=== PATIENT | female | born 1965 | race Caucasian/White ===

== ENCOUNTER 2018-07-10 15:07 | Emergency (ER) | payer OTHER ==
[~2018-07-10] VITALS: Ht 162.6 cm; Wt 81.6 kg
[~2018-07-10 15:07] MED LIST: LORA10TA19 PO; [UNRECOGNIZED DRUG - CODE] PO
[2018-07-10 15:13] VITALS: BP 128/48
[2018-07-10 18:41] VITALS: BP 120/50
== END 2018-07-10 18:41 | disposition home or self-care (01) ==
LOC: MED 15:07
DX: N20.0 Calculus of kidney (principal); Z90.49 Acquired absence of other specified parts of digestive tract; Z79.899 Other long term (current) drug therapy
CPT/HCPCS: 74022; 81002; 81025; 99284

== ENCOUNTER 2019-01-28 19:48 | Emergency (ER) | payer OTHER ==
[~2019-01-28] VITALS: Ht 165.1 cm; Wt 72.6 kg
[2019-01-28 20:01] VITALS: BP 136/77
--- NOTE | 2019-01-28 20:05 | NUR ---
PT TO ED WITH C/O DIZZINESS WITH SUDDEN ONSET X 1840 TODAY WHILE DRIVING. PT DENIES N/V. DENIES INJURY OR TRAUMA. PER PT "I WAS DRIVING THEN I FELT WEIRD SO I PULLED OVER FOR A BIT THEN CAME HERE" PT PLACED INTO BED, PENDING MD VALENZUELA.
--- NOTE | 2019-01-28 20:21 | NUR ---
CODE BRAIN CALLED AT THIS TIME. RADIOLOGY MADE AWARE
[2019-01-28] MEDS ORDERED: NACL 0.9% 1,000 ML IV ONE (20:25)
--- NOTE | 2019-01-28 20:25 | NUR ---
RN ACCOMPANIED PT TO CT FOR CODE BRAIN. PT PLACED ON MONITOR.
--- NOTE | 2019-01-28 20:37 | NUR ---
PT RETURN FROM CT
--- NOTE | 2019-01-28 20:38 | NUR ---
CXR COMPLETED IN RAD.
--- NOTE | 2019-01-28 20:39 | NUR ---
EMT PERFORMING EKG AT BEDSIDE.
[2019-01-28 21:18] LABS: BASOPHILS # (AUTO) 0.1 K/uL (0.00-0.22); BASOPHILS % (AUTO) 0.7 % (0.0-2.0); EOSINOPHILS # (AUTO) 0.2 K/uL (0-0.4); EOSINOPHILS % (AUTO) 1.3 % (0.0-4.0); HEMATOCRIT 41.6 % (36-48); LYMPHOCYTES # (AUTO) 3.2 K/uL (2.5-16.5); LYMPHOCYTES % (AUTO) 27.5 % (20.5-51.1); MEAN CORPUSCULAR HEMOGLOBIN 29 pg (27-31); MEAN CORPUSCULAR HGB CONC 34 g/dL (33-37); MEAN CORPUSCULAR VOLUME 87.2 fL (80-94); MONOCYTES # (AUTO) 0.8 K/uL (0.8-1.0); NEUTROPHILS # (AUTO) 7.5 K/uL (1.8-7.7); NEUTROPHILS % (AUTO) 63.5 % (42.2-75.2); PLATELET COUNT (AUTO) 329 K/uL (140-450); RED BLOOD CELL COUNT(AUTO) 4.77 MIL/uL (4.20-5.40); RED CELL DISTRIBUTION WIDTH 13.8 % (11.6-13.7); WHITE BLOOD COUNT (AUTO) 11.8 K/uL (4.8-10.8)
--- NOTE | 2019-01-28 21:27 | NUR ---
PT AWAKE, ALERT, CALM, COMFORTABLE. DENIES PAIN, DISTRESS. STATES SHE FEELS A LITTLE BETTER BUT IS STILL MILDLY SHAKEY. SKIN PINK, WARM, DRY. BREATHING EVEN, UNLABORED.
[2019-01-28 21:32] LABS: ANION GAP 13.4 (8-16); CARBON DIOXIDE 25.3 mmol/L (21-32); CREATININE 0.8 mg/dL (0.6-1.3); POTASSIUM 3.7 mmol/L (3.5-5.1)
[2019-01-28 21:37] LABS: ALBUMIN 3.9 g/dL (3.4-5.0); TOTAL BILIRUBIN 0.4 mg/dL (0.0-1.0)
[2019-01-28 21:43] LABS: CREATINE KINASE MB 1.3 ng/mL (0-3.6)
--- NOTE | 2019-01-28 22:05 | NUR ---
Dr. Alba examining patient.
--- NOTE | 2019-01-28 23:10 | NUR ---
PT STATES SHE FEELS BETTER AND WOULD LIKE TO GO HOME. DENIES PAIN/ DISCOMFORT/ SHAKINESS. DR. DUEÑAS NOTIFIED.
[2019-01-28 23:15] VITALS: BP 115/64
--- NOTE | 2019-01-28 23:15 | NUR ---
Patient discharged with v/s stable. Written and verbal after care instructions given and explained. Patient verbalized understanding. Ambulatory with steady gait. All questions addressed prior to discharge. Advised to follow up with PMD.
== END 2019-01-28 23:15 | disposition home or self-care (01) ==
LOC: MED 19:48
DX: E86.0 Dehydration (principal); R55 Syncope and collapse; Z79.899 Other long term (current) drug therapy
CPT/HCPCS: 36415; 70450; 71045; 80053; 82550; 82553; 84484; 85025; 93005; 96360; 99284; J7030; Q0092

== ENCOUNTER 2019-02-04 12:28 | Emergency (ER) | payer OTHER ==
[~2019-02-04] VITALS: Ht 160 cm; Wt 73.9 kg
[2019-02-04 12:34] VITALS: BP 122/69
--- NOTE | 2019-02-04 13:30 | NUR ---
called pt, not present in lobby/outside at this time
--- NOTE | 2019-02-04 13:38 | NUR ---
called pt, not present in lobby/outside at this time
--- NOTE | 2019-02-04 13:44 | NUR ---
called pt, not present in lobby/outside at this time. pt LWBS
--- NOTE | 2019-02-04 13:45 | NUR ---
PATIENT LEFT WITHOUT BEING SEEN BY DR. Evans. NO FURTHER CARE PROVIDED FOR PATIENT.
[2019-02-04] MEDS ORDERED: ATI.5 PO (20:11)
[2019-02-04] MEDS ORDERED: ESCI10TA PO (20:11)
== END 2019-02-04 13:42 | disposition left against medical advice (07) ==
LOC: MED 12:28
DX: R20.0 Anesthesia of skin (principal); Z79.899 Other long term (current) drug therapy; Z53.21 Procedure and treatment not carried out due to patient leaving prior to being seen by health care provider

== ENCOUNTER 2019-02-04 16:56 | Inpatient (IN) | payer OTHER ==
[~2019-02-04] VITALS: Ht 160 cm; Wt 72.6 kg
[2019-02-04 17:01] VITALS: BP 139/81
--- NOTE | 2019-02-04 17:41 | NUR ---
PT PRESENTS TO ED WITH C/O NUMBNESS TO L ARM FOR APPROX 1 WEEK AGO. PT ALERT TO NAME, PLACE, TIME AND EVENT. NO FACIAL ASSYMETRY/DROOP NOTED. EQUAL BLE/BUE STRENGTH. PT CHECKED INTO [facility] EARLIER TODAY BUT LWBS, PER PT: SHE WAS SEEN AT URGENT CARE AND ADVISED TO RETURN TO THE ER. HX: DEPRESSION, ANXIETY RX: DENIES
--- NOTE | 2019-02-04 19:05 | NUR ---
REPORT RECIEVED FROM ANIKA SIGALA.
[2019-02-04] MEDS ORDERED: NACL 0.9% 1,000 ML IV ONE (19:20)
[2019-02-04 19:42] LABS: APPEARANCE,URINE CLEAR (CLEAR); BASOPHILS % (AUTO) 0.3 % (0.0-2.0); BILIRUBIN,URINE NEGATIVE (NEGATIVE); COLOR,URINE YELLOW (YELLOW); EOSINOPHILS # (AUTO) 0.2 K/uL (0-0.4); EOSINOPHILS % (AUTO) 1.7 % (0.0-4.0); HEMOGLOBIN 13.5 g/dL (12.0-16.0); LEUKOCYTE ESTERASE ,URINE NEGATIVE (NEGATIVE); LYMPHOCYTES # (AUTO) 2.9 K/uL (2.5-16.5); LYMPHOCYTES % (AUTO) 21.9 % (20.5-51.1); MEAN CORPUSCULAR HEMOGLOBIN 29 pg (27-31); MEAN CORPUSCULAR HGB CONC 33 g/dL (33-37); MEAN CORPUSCULAR VOLUME 87.6 fL (80-94); MONOCYTES # (AUTO) 1.2 K/uL (0.8-1.0); MONOCYTES % (AUTO) 8.6 % (1.7-9.3); NEUTROPHILS % (AUTO) 67.5 % (42.2-75.2); NITRITE, URINE NEGATIVE (NEGATIVE); PH,URINE 6.5 (5.0-9.0); PLATELET COUNT (AUTO) 320 K/uL (140-450); RED BLOOD CELL COUNT(AUTO) 4.68 MIL/uL (4.20-5.40); RED CELL DISTRIBUTION WIDTH 13.9 % (11.6-13.7); UGLUCOSE NEGATIVE (NEGATIVE); WHITE BLOOD COUNT (AUTO) 13.4 K/uL (4.8-10.8)
[2019-02-04 19:58] LABS: ALBUMIN 3.5 g/dL (3.4-5.0); ANION GAP 11.6 (8-16); CARBON DIOXIDE 26.4 mmol/L (21-32); CREATININE 0.8 mg/dL (0.6-1.3); TOTAL BILIRUBIN 0.4 mg/dL (0.0-1.0)
--- NOTE | 2019-02-04 20:00 | NUR ---
PT IN BED RESTING WITH EYES OPEN. AT BEDSIDE. STATES 0/10 PAIN. VSS. CONTINUE TO MONITOR.
[2019-02-04] MEDS ORDERED: ASPIRIN 325 MG TAB PO ONE (20:10)
[2019-02-04] MEDS ORDERED: ATI.5 PO (20:11)
[2019-02-04] MEDS ORDERED: ESCI10TA PO (20:11)
[2019-02-04 20:19] LABS: CREATINE KINASE MB 0.7 ng/mL (0-3.6)
[2019-02-04 20:42] LABS: BLOOD, URINE NEGATIVE (NEGATIVE)
[2019-02-04] MEDS ORDERED: ACETAMINOPHEN 325 MG TAB PO PRN (20:50)
[2019-02-04] MEDS ORDERED: DOCUSATE SODIUM 100 MG GELCAP PO PRN (20:50)
[2019-02-04] MEDS ORDERED: ONDANSETRON 4 MG/2 ML VIAL IM/IVP PRN (20:50)
--- NOTE | 2019-02-04 21:18 | NUR ---
REPORT GIVEN AND CARE TRANSFERED TO FRANCIE SIGALA ROOM 105A. TRANSFERED VIA RNEY WITH VSS.
[2019-02-04] MEDS ORDERED: LORazepam 0.5 MG TAB PO PRN (21:20)
[2019-02-04] MEDS ORDERED: LORATADINE 10 MG TAB PO PRN (21:20)
[2019-02-04 21:22] LABS: BARBITURATE, URINE NEG. ng/ml (NEG <=200); BENZODIAZEPINE, URINE NEG. ng/mL (NEG <=200); CANNABINOID, URINE NEG. ng/mL (NEG <=50); COCAINE, URINE NEG. ng/mL (NEG <=300); OPIATE, URINE NEG. ng/mL (NEG <=2000); PHENCYCLIDINE SCREEN,URINE NEG. ng/mL (NEG <=25)
[2019-02-04 21:24] LABS: FREE T4 (FREE THYROXINE) 1.09 ng/dL (0.76-1.46); MAGNESIUM 2.1 mg/dL (1.8-2.4); PHOSPHORUS 3.8 mg/dL (2.5-4.9); THYROID STIMULATING HORMONE 1.26 uIU/mL (0.34-3.74)
[2019-02-04 21:25] LABS: PROTHROMBIN TIME 9.4 secs (10.8-13.4)
[2019-02-04 21:40] VITALS: BP 124/52
--- NOTE | 2019-02-04 21:40 | NUR ---
RECEIVED PT FROM ER NURSE. PT CAME IN [facility] AND AMBULATED TO [facility] BED. AAOX4. NO SOB OR ANY RESP DISTRESS NOTED ON ROOM AIR. SKIN INTACT, WARM AND DRY TO TOUCH. IV SITE ON RH 22G, PATENT, INTACT, AND ASYMPTOMATIC. DX CHEST PAIN, NEAR SYNCOPE. STANDARD PRECAUTION IN PLACE. ORIENT ROOM TO PT, UPDATED BOARD. CALL LIGHT WITHIN REACH. BED IN LOW POSITION.
--- NOTE | 2019-02-04 22:05 | NUR ---
PT SENT TO RAD TO HAVE HEAD CT.
[2019-02-04] MEDS: NACL 0.9% 1,000 ML IV SCH (22:28)
--- NOTE | 2019-02-04 22:45 | NUR ---
PT CAME BACK FROM HEAD CT. NO DISTRESS NOTED.
[2019-02-05] VITALS: BP 110/51
--- NOTE | 2019-02-05 00:40 | NUR ---
PT SLEEPING IN BED. BREATHING EVEN AND UNLABORED. BED IN LOW POSITION. CALL LIGHT WITHIN REACH.
--- NOTE | 2019-02-05 02:05 | NUR ---
PT SLEEPING IN BED COMFORTABLY. NO SOB OR ANY RESP. DISTRESS NOTED. BED IN LOW POSITION, CALL LIGHT WITHIN REACH.
[2019-02-05 04:00] VITALS: BP 97/47
--- NOTE | 2019-02-05 04:13 | NUR ---
PT SLEEPING IN BED. BREATHING EVEN AND UNLABORED. BED IN LOW POSITION. CALL LIGHT WITHIN REACH. WILL CONTINUE TO MONITOR.
--- NOTE | 2019-02-05 06:05 | NUR ---
PT SLEEPING IN BED. NO ACUTE DISTRESS NOTED.
[2019-02-05 07:01] LABS: ANION GAP 12.3 (8-16); CARBON DIOXIDE 25.4 mmol/L (21-32); CREATININE 0.6 mg/dL (0.6-1.3); POTASSIUM 3.7 mmol/L (3.5-5.1)
[2019-02-05 07:17] LABS: CHOL/HDL RATIO 3.7 (1-4.5)
--- NOTE | 2019-02-05 07:17 | NUR ---
ENDORSED PT TO DAY SHIFT NURSE. PT IN STABLE CONDITION.
--- NOTE | 2019-02-05 07:18 | NUR ---
RECEIVED REPORT FROM THE ENTERTAINMENT MUSICIAN NURSE AT BEDSIDE. PT IS SLEEPING. PT HAS IV ON R HAND 22G NS AT 100ML INFUSING. WILL COME BACK AND ASSESS PT. UPDATED THE BOARD.
--- NOTE | 2019-02-05 07:40 | NUR ---
PT IS WAKE AND ORIENTED. V/S WITHIN NORMAL RANGE. DENIES ANY PAIN. SOME OCCASIONAL HEAVINESS ON CHEST. SOME ANXIETY. XRY WAS HERE FOR CXRY. SO FAR, 2 TROPONIN NEGATIVE. FIRST CXRY NEGATIVE. HEAD CT NEGATIVE. WILL PT AMBULATED TO THE BATHROOM W/ STEADY GAIT. DISCUSSED TAKING ANTI DEPRESSANTS ON REGULAR BASIS. PLAN FOR TODAY: PSYCH EVAL, P/T EVAL, AND US CAROTID. WILL CONTINUE TO MONITOR PT.
[2019-02-05 08:00] VITALS: BP 117/46
[2019-02-05 08:15] LABS: BASOPHILS # (AUTO) 0.1 K/uL (0.00-0.22); BASOPHILS % (AUTO) 0.6 % (0.0-2.0); EOSINOPHILS # (AUTO) 0.2 K/uL (0-0.4); EOSINOPHILS % (AUTO) 1.8 % (0.0-4.0); HEMATOCRIT 38.5 % (36-48); HEMOGLOBIN 12.9 g/dL (12.0-16.0); LYMPHOCYTES # (AUTO) 2.3 K/uL (2.5-16.5); LYMPHOCYTES % (AUTO) 23.8 % (20.5-51.1); MEAN CORPUSCULAR HEMOGLOBIN 29 pg (27-31); MEAN CORPUSCULAR HGB CONC 33 g/dL (33-37); MEAN CORPUSCULAR VOLUME 88.1 fL (80-94); MONOCYTES # (AUTO) 0.8 K/uL (0.8-1.0); MONOCYTES % (AUTO) 8.1 % (1.7-9.3); NEUTROPHILS # (AUTO) 6.4 K/uL (1.8-7.7); NEUTROPHILS % (AUTO) 65.7 % (42.2-75.2); PLATELET COUNT (AUTO) 286 K/uL (140-450); RED BLOOD CELL COUNT(AUTO) 4.37 MIL/uL (4.20-5.40); RED CELL DISTRIBUTION WIDTH 13.3 % (11.6-13.7); WHITE BLOOD COUNT (AUTO) 9.8 K/uL (4.8-10.8)
--- NOTE | 2019-02-05 08:50 | NUR ---
US IS HERE FOR CAROTID US.
[2019-02-05] MEDS: NACL 0.9% 1,000 ML IV SCH ×2 (08:52→17:52)
[2019-02-05] MEDS: ESCITALOPRAM 20 MG TAB PO SCH (08:53)
--- NOTE | 2019-02-05 08:56 | NUR ---
ADMINISTERED MORNING MED AND HUNG A NEW IVF BAG. PT TOLERATED WELL.
--- NOTE | 2019-02-05 09:18 | NUR ---
PATIENT HAS BEEN SCREENED AND CATEGORIZED MODERATE NUTRITION RISK. PATIENT WILL BE SEEN WITHIN 3-5 DAYS OF ADMISSION. 02/07/19JACOB[address] OLIV[address]
[2019-02-05 12:00] VITALS: BP 111/49
[2019-02-05 16:00] VITALS: BP 120/63
--- NOTE | 2019-02-05 19:05 | NUR ---
RECEIVED PT FROM DAY SHIFT NURSEMARCELLO. FAMILY AT BEDSIDE. PT AAOX4. NO SOB OR ANY RESP DISTRESS NOTED ON ROOM AIR. SKIN INTACT, WARM AND DRY TO TOUCH. IV SITE ON RH 22G, PATENT, INTACT, AND ASYMPTOMATIC. STANDARD PRECAUTION IN PLACE. UPDATED BOARD. CALL LIGHT WITHIN REACH. BED IN LOW POSITION.
[2019-02-05 20:00] VITALS: BP 120/54
--- NOTE | 2019-02-05 20:00 | NUR ---
VS CHECKED. WITHIN NORMAL RANGE. WILL CONTINUE TO MONITOR.
--- NOTE | 2019-02-05 22:36 | NUR ---
PT SLEEPING IN BED. RESPIRATION EVEN AND UNLABORED. CALL LIGHT WITHIN REACH.
[2019-02-06] VITALS: BP 122/56
--- NOTE | 2019-02-06 00:45 | NUR ---
PT SLEEPING IN BED. NO ACUTE DISTRESS NOTED. BREATHING EVEN AND UNLABORED.
--- NOTE | 2019-02-06 02:44 | NUR ---
PT SLEEPING IN BED COMFORTABLY. NO ACUTE DISTRESS NOTED. BED IN LOW POSITION, CALL LIGHT WITHIN REACH.
[2019-02-06] MEDS: NACL 0.9% 1,000 ML IV SCH (03:38)
[2019-02-06 04:07] VITALS: BP 100/44
--- NOTE | 2019-02-06 04:15 | NUR ---
VS CHECKED. WITHIN PT'S BASELINE. NO ACUTE DISTRESS NOTED. CALL LIGHT WITHIN REACH.
--- NOTE | 2019-02-06 05:41 | NUR ---
PT STILL SLEEPING. BREATHING EVEN AND UNLABORED. NO ACUTE DISTRESS NOTED.
--- NOTE | 2019-02-06 07:04 | NUR ---
ENDORSED PT TO DAY SHIFT NURSE. PT IN STABLE CONDITION.
[2019-02-06 07:20] LABS: ANION GAP 10.6 (8-16); CARBON DIOXIDE 25.2 mmol/L (21-32); CREATININE 0.7 mg/dL (0.6-1.3); POTASSIUM 3.8 mmol/L (3.5-5.1)
--- NOTE | 2019-02-06 07:25 | NUR ---
RECEIVED HANDOFF REPORT FROM BINDERY MACHINE TENDER NURSE PT IS AWAKE IN BED PT IS STABLE AND IN NO APPARENT DISTRESS. ALL SAFETY MEASURES ARE IN PLACE. WILL CONTINUE TO MONITOR.
[2019-02-06 07:32] LABS: PHOSPHORUS 3.7 mg/dL (2.5-4.9)
[2019-02-06 07:54] LABS: BASOPHILS # (AUTO) 0.1 K/uL (0.00-0.22); BASOPHILS % (AUTO) 0.7 % (0.0-2.0); EOSINOPHILS # (AUTO) 0.2 K/uL (0-0.4); EOSINOPHILS % (AUTO) 2.1 % (0.0-4.0); LYMPHOCYTES # (AUTO) 2.5 K/uL (2.5-16.5); LYMPHOCYTES % (AUTO) 26.8 % (20.5-51.1); MEAN CORPUSCULAR HEMOGLOBIN 29 pg (27-31); MEAN CORPUSCULAR HGB CONC 33 g/dL (33-37); MEAN CORPUSCULAR VOLUME 87.3 fL (80-94); MONOCYTES # (AUTO) 0.9 K/uL (0.8-1.0); MONOCYTES % (AUTO) 9.2 % (1.7-9.3); NEUTROPHILS # (AUTO) 5.7 K/uL (1.8-7.7); NEUTROPHILS % (AUTO) 61.2 % (42.2-75.2); PLATELET COUNT (AUTO) 300 K/uL (140-450); RED BLOOD CELL COUNT(AUTO) 4.46 MIL/uL (4.20-5.40); RED CELL DISTRIBUTION WIDTH 13.6 % (11.6-13.7); WHITE BLOOD COUNT (AUTO) 9.4 K/uL (4.8-10.8)
[2019-02-06] MEDS: ESCITALOPRAM 20 MG TAB PO SCH (08:17)
[2019-02-06 08:29] VITALS: BP 104/58
--- NOTE | 2019-02-06 09:13 | NUR ---
FREQUENT ROUNDING PT IS AWAKE AND STABLE PT IS IN NO APPARENT DISTRESS, PT DENIES PAIN. WILL CONTINUE TO MONITOR, IVF INFUSING AT 100MLS/HR IV IS PATENT AND SHOWS NO SIGNS OF INFILTRATION OR INFLAMMATION
--- NOTE | 2019-02-06 10:35 | NUR ---
INFORMED PT ABOUT CHANGE IN PLAN OF CARE. WILL PREPARE FOR PT TO BE DISCHARGED HOME. PT IS AWARE OF THE PLAN.
[2019-02-06 10:54] VITALS: BP 104/58
--- NOTE | 2019-02-06 11:18 | NUR ---
FREQUENT ROUNDING ON PATIENT PT IS STABLE AND IN NO APPARENT DISTRESS. ALL SAFETY MEASURES ARE IN PLACE. WILL CONTINUE TO MONITOR.
[2019-02-06 12:00] VITALS: BP 108/54
--- NOTE | 2019-02-06 12:30 | NUR ---
PT IS DRESS. AND READY FOR DISCHARGE. REVIEWED PATIENT DISCHARGE INSTRUCTIONS. INFORMED PT OF HER APPOINTMENT WITH HER PCP ON February AT 10AM. PT IS AWARE OF APPOINTMENT AND OK WITH FOLLOWING UP WITH PCP. ANSWERED ALL THE PTS QUESTIONS PT IS STABLE AND IN NO APPARENT DISTRESS, PT SIGNED ALL DISCHARGE PAPERWORK. PT REQUESTED A SICK NOTE FOR WORK, WILL ASK TO WRITE ONE.
--- NOTE | 2019-02-06 12:58 | NUR ---
PT FAMILY IS AT BEDSIDE. PT IS READY FOR DISCHARGE. REMOVED IV. IV TIP INTACT. REMOVED ID BAND. AND TELE BOX. PT AMBULATED OFF THE UNIT WITH HER DAUGHTER. PT LEFT WITH ALL PERSONAL BELONGINGS. PT IS STABLE AND IN NO APPARENT DISTRESS.
== END 2019-02-06 13:00 | disposition home or self-care (01) | DRG 74 ==
LOC: MED 16:56 → MTU 20:45
PROVIDERS: ADMIT General Practice; ATTEND General Practice
DX: G90.8 Other disorders of autonomic nervous system (principal); F41.1 Generalized anxiety disorder; D72.829 Elevated white blood cell count, unspecified; F32.9 Major depressive disorder, single episode, unspecified; J30.2 Other seasonal allergic rhinitis; E87.8 Other disorders of electrolyte and fluid balance, not elsewhere classified; F43.9 Reaction to severe stress, unspecified; Z90.49 Acquired absence of other specified parts of digestive tract
CPT/HCPCS: 36415; 70450; 71045; 80048; 80053; 80305; 81003; 82150; 82550; 82553; 83036; 83605; 83690; 83735; 83880; 84100; 84134; 84439; 84443; 84484; 85025; 85610; 85730; 87081; 93005; 93880; 97161-GP; 99285; G0378; J7030; Q0092

== ENCOUNTER 2019-05-18 10:25 | Inpatient (IN) | payer OTHER ==
[~2019-05-18] VITALS: Ht 160 cm; Wt 73.9 kg
[~2019-05-18 10:25] MED LIST changes: +ATI.5 PO; +ESCI10TA PO; -[UNRECOGNIZED DRUG - CODE] PO
[2019-05-18 10:39] VITALS: BP 119/71
[2019-05-18] MEDS ORDERED: IBUPROFEN 600 MG TAB PO ONE (10:50)
[2019-05-18] MEDS ORDERED: ACETAMINOPHEN EXTRA STRENGTH 500 MG TAB PO ONE (10:50)
--- NOTE | 2019-05-18 10:53 | NUR ---
PATIENT AMBULATED TO BED 2.
--- NOTE | 2019-05-18 10:58 | NUR ---
LAB AT BEDSIDE
--- NOTE | 2019-05-18 11:01 | NUR ---
URINE COLLECTED, COLORED ORANGE/RED
[2019-05-18] MEDS ORDERED: NACL 0.9% 1,000 ML IV ONE ×2 (11:15→12:15)
--- NOTE | 2019-05-18 11:24 | NUR ---
XRAY AT BEDSIDE
--- NOTE | 2019-05-18 11:37 | NUR ---
C/O GENERALIZED ITCHING, DARK URINE & BLOATING X 1 WEEK. PT REPORTS TAKING BENADRYL AT HOME WITH SOME RELIEF. DENIES DYSURIA/ABD PAIN, N/V. PT IS TACHYCARDIC AT 117 BPM & FEBRILE AT 102.5 PO UPON TRIAGE. RESPIRATIONS 31. AA0X4. BED IS DOWN, LOCKED, BED RAIL X 1, ON MONITOR. ERMD TO SEE PT. HX: DEPRESSION/ANXIETY RX: LEXAPRO, ATIVAN
[2019-05-18 11:47] LABS: BASOPHILS # (AUTO) 0.1 K/uL (0.00-0.22); BASOPHILS % (AUTO) 0.4 % (0.0-2.0); EOSINOPHILS % (AUTO) 0.1 % (0.0-4.0); HEMATOCRIT 45.8 % (36-48); HEMOGLOBIN 14.9 g/dL (12.0-16.0); LYMPHOCYTES # (AUTO) 0.9 K/uL (2.5-16.5); LYMPHOCYTES % (AUTO) 5.9 % (20.5-51.1); MEAN CORPUSCULAR HEMOGLOBIN 29 pg (27-31); MEAN CORPUSCULAR HGB CONC 33 g/dL (33-37); MEAN CORPUSCULAR VOLUME 88.5 fL (80-94); MONOCYTES % (AUTO) 6.4 % (1.7-9.3); NEUTROPHILS % (AUTO) 87.2 % (42.2-75.2); PLATELET COUNT (AUTO) 307 K/uL (140-450); RED BLOOD CELL COUNT(AUTO) 5.18 MIL/uL (4.20-5.40); RED CELL DISTRIBUTION WIDTH 13.4 % (11.6-13.7)
[2019-05-18 11:59] LABS: BARBITURATE, URINE NEG. ng/ml (NEG <=200); BENZODIAZEPINE, URINE NEG. ng/mL (NEG <=200); CANNABINOID, URINE NEG. ng/mL (NEG <=50); COCAINE, URINE NEG. ng/mL (NEG <=300); OPIATE, URINE NEG. ng/mL (NEG <=2000); PHENCYCLIDINE SCREEN,URINE NEG. ng/mL (NEG <=25)
[2019-05-18 12:00] LABS: APPEARANCE,URINE CLEAR (CLEAR); BILIRUBIN,URINE 2+ (NEGATIVE); BLOOD, URINE TRACE-I (NEGATIVE); COLOR,URINE YELLOW (YELLOW); LEUKOCYTE ESTERASE ,URINE 2+ (NEGATIVE); NITRITE, URINE NEGATIVE (NEGATIVE); UGLUCOSE NEGATIVE (NEGATIVE)
[2019-05-18 12:10] LABS: ANION GAP 14.2 (8-16); CARBON DIOXIDE 26.6 mmol/L (21-32); CREATININE 0.8 mg/dL (0.6-1.3); POTASSIUM 3.8 mmol/L (3.5-5.1); PROTHROMBIN TIME 9.5 secs (10.8-13.4)
[2019-05-18 12:15] LABS: ALBUMIN 4.1 g/dL (3.4-5.0); TOTAL BILIRUBIN 3.3 mg/dL (0.0-1.0)
[2019-05-18] MEDS ORDERED: diphenhydrAMINE 50 MG CAP PO ONE (12:20)
[2019-05-18] MEDS ORDERED: PIPERACILLIN/TAZOBACTAM 3.375 GM in DEXTROSE 5% 50 ML IV ONE (12:45)
[2019-05-18] MEDS ORDERED: PIPERACILLIN/TAZOBACTAM 3.375 GM VIAL IV ONE (13:15)
--- NOTE | 2019-05-18 13:46 | NUR ---
US AT BEDSIDE
[2019-05-18] MEDS: NACL 0.9% 1,000 ML IV SCH (13:57)
[2019-05-18] MEDS ORDERED: IBUPROFEN 600 MG TAB PO PRN (14:00)
[2019-05-18] MEDS ORDERED: ACETAMINOPHEN 325 MG TAB PO PRN (14:00)
[2019-05-18] MEDS ORDERED: ONDANSETRON 4 MG/2 ML VIAL IM/IVP PRN (14:00)
[2019-05-18] MEDS ORDERED: DOCUSATE SODIUM 100 MG GELCAP PO PRN (14:00)
[2019-05-18] MEDS ORDERED: diphenhydrAMINE 50 MG/ML VIAL IVP PRN (14:05)
--- NOTE | 2019-05-18 14:27 | NUR ---
LEFT MESSAGE FOR DR ARAUJO, PCP, PT NOTIFIED FAMILY OF ADMIT
--- NOTE | 2019-05-18 14:45 | NUR ---
Patient will be admitted to care of RAHEL. Admited to TELE. Will go to room 125B. Belongings list completed. Report to CLINT SIGALA. PT ADMITTED WITH NS RUNNING BOLUS. APPROX 900 ML LEFT
--- NOTE | 2019-05-18 14:45 | NUR ---
RECEIVED PT FROM ER NURSE JOSHUA. PT IS AAOX4, AMBULATORY. ABLE TO MAKE NEEDS KNOWN. PT IS ON ROOM AIR. NO SIGNS OF DISTRESS OR SOB. PT PRESENTS WITH NO FEVER. NO REPORTS OF PAIN. ALL VITALS ARE STABLE. IV IN THE LEFT HAND 24G INFUSING BOLUS OF NS. WILL RUN NS @100ML/HR WHEN BOLUS FINISHES. SKIN IS INTACT. EXPLAINED POC TO PT AND PT VERBALIZED UNDERSTANDING. MRSA NARES SWAB TAKEN. ENVIRONMENTAL CHECK DONE. BED IN LOW POSITION, CALL LIGHT WITHIN REACH. WILL ROUND FREQUENTLY ON PT.
[2019-05-18 16:00] VITALS: BP 111/49
[2019-05-18 16:24] LABS: ALBUMIN 4.2 g/dL (3.4-5.0); AMYLASE 24 U/L (25-115); CHOL/HDL RATIO 5.5 (1-4.5); FREE T4 (FREE THYROXINE) 1.38 ng/dL (0.76-1.46); HDL CHOLESTEROL 44 mg/dL (40-60); LACTATE DEHYDROGENASE 278 U/L (81-234); LDL (CALC) 171 mg/dL (60-100); LIPASE 80 U/L (73-393); MAGNESIUM 1.9 mg/dL (1.8-2.4); PHOSPHORUS 3.3 mg/dL (2.5-4.9); THYROID STIMULATING HORMONE 1.03 uIU/mL (0.34-3.74); TRIGLYCERIDES 126 mg/dL (30-150)
--- NOTE | 2019-05-18 16:48 | NUR ---
PT RESTING IN BED. ALL NEEDS MET. MEAL TRAY BROUGHT TO PT WHILE DINNER ARRIVES. WILL CONTINUE TO ROUND FREQUENTLY ON PT. BED IN LOW POSITION, CALL LIGHT WITHIN REACH.
[2019-05-18] MEDS: PIPERACILLIN/TAZOBACTAM 3.375 GM in DEXTROSE 5% 50 ML IV SCH ×2 (18:09→23:39)
--- NOTE | 2019-05-18 18:50 | NUR ---
PT RESTING IN BED. ALL NEEDS MET.
--- NOTE | 2019-05-18 19:48 | NUR ---
ENDORSED PT TO HOSPITAL ATTENDANT FOR CONTINUITY OF CARE. PT IN STABLE CONDITION AT THIS TIME.
--- NOTE | 2019-05-18 19:49 | NUR ---
;RECEIVED PT FROM TEAGAN RN PT IS AAOX4 AMBULATORY, ON TELEMETRY SR, IV ON LEFT HAND INFUSING WELL DENIES ANY PAIN INITIAL ASSESSMENT DONE
[2019-05-18 20:00] VITALS: BP 107/49
--- NOTE | 2019-05-18 22:47 | NUR ---
PT COMPLAIN OF ITCHING NOT SIGH OF RASH NOTED BENDRYL GIVEN ORDER
[2019-05-19] VITALS: BP 105/47
--- NOTE | 2019-05-19 01:00 | NUR ---
PT NPO FOR ERCP SILKE AM FOR HIGH LFT
--- NOTE | 2019-05-19 04:00 | NUR ---
PT HAS BEEN MONNITORING CLOSE SLEEPING WELLL NOT DISTRESS NOTED ON TELE SR NOT DISTRESS NOTED
[2019-05-19 04:52] VITALS: BP 98/48
[2019-05-19] MEDS: NACL 0.9% 1,000 ML IV SCH ×3 (05:05→19:57)
--- NOTE | 2019-05-19 05:18 | NUR ---
PT. RESTING NO C/O OF PAIN. NPO FOR ERCP THIS AM
[2019-05-19 06:07] LABS: HEPATITIS A ANTIBODY IGM Negative (Negative); HEPATITIS B CORE AB TOTAL Negative (Negative); HEPATITIS B SURFACE ANTIBODY Non Reactive (.); HEPATITIS B SURFACE ANTIGEN Negative (Negative)
[2019-05-19] MEDS: PIPERACILLIN/TAZOBACTAM 3.375 GM in DEXTROSE 5% 50 ML IV SCH ×3 (06:30→17:37)
--- NOTE | 2019-05-19 07:07 | NUR ---
PT WILL BE ENDORSED TODAY SHIFT NURSE FOR CONTINUE OF CARE
--- NOTE | 2019-05-19 07:12 | NUR ---
RECEIVED REPORT FROM NIGHT RN. PT RESTING IN BED. AAOX4. NO S/S OF ACUTE DISTRESS. PT DENIES PAIN. IV SITE PATENT AND INTACT. CALL LIGHT WITHIN REACH. SAFETY MEASURES ENSURED. WILL CONTINUE TO MONITOR.
[2019-05-19 08:00] VITALS: BP 109/52
[2019-05-19 08:02] LABS: BASOPHILS % (AUTO) 0.5 % (0.0-2.0); EOSINOPHILS # (AUTO) 0.1 K/uL (0-0.4); EOSINOPHILS % (AUTO) 1.3 % (0.0-4.0); HEMATOCRIT 38.6 % (36-48); HEMOGLOBIN 12.6 g/dL (12.0-16.0); LYMPHOCYTES # (AUTO) 1.5 K/uL (2.5-16.5); LYMPHOCYTES % (AUTO) 21.6 % (20.5-51.1); MEAN CORPUSCULAR HEMOGLOBIN 29 pg (27-31); MEAN CORPUSCULAR HGB CONC 33 g/dL (33-37); MEAN CORPUSCULAR VOLUME 88.8 fL (80-94); MONOCYTES # (AUTO) 0.9 K/uL (0.8-1.0); MONOCYTES % (AUTO) 12.6 % (1.7-9.3); NEUTROPHILS # (AUTO) 4.6 K/uL (1.8-7.7); PLATELET COUNT (AUTO) 269 K/uL (140-450); RED BLOOD CELL COUNT(AUTO) 4.35 MIL/uL (4.20-5.40); RED CELL DISTRIBUTION WIDTH 13.6 % (11.6-13.7); WHITE BLOOD COUNT (AUTO) 7.1 K/uL (4.8-10.8)
--- NOTE | 2019-05-19 08:12 | NUR ---
PATIENT HAS BEEN SCREENED AND CATEGORIZED HIGH NUTRITION RISK. PATIENT WILL BE SEEN WITHIN 1-2 DAYS OF ADMISSION. 05/19/19-05/20/[address]
[2019-05-19 08:35] LABS: CREATININE 0.6 mg/dL (0.6-1.3)
[2019-05-19 08:43] LABS: PHOSPHORUS 2.8 mg/dL (2.5-4.9)
[2019-05-19] MEDS: LACTOBACILLUS RHAMNOSUS GG 1 EACH CAP PO SCH (08:47)
[2019-05-19 12:19] VITALS: BP 103/55
--- NOTE | 2019-05-19 13:10 | NUR ---
PT BACK FROM OR. NO S/S OF ACUTE DISTRESS. PT DENIES PAIN. IV SITE PATENT AND INTACT. CALL LIGHT WITHIN REACH. SAFETY MEASURES ENSURED. WILL CONTINUE TO MONITOR.
--- NOTE | 2019-05-19 14:07 | NUR ---
05/19/19 RD INITIAL ASSESSMENT COMPLETED PLEASE REFER TO NUTRITION ASSESSMENT UNDER CARE ACTIVITY FOR ESTIMATED NUTRITIONAL NEEDS. 1. CONTINUE NPO MEDICALLY APPROPRIATE 2. IF/WHEN PATIENT IS MEDICALLY STABLE CONSIDER ADVANCING TO REGULAR DIET 3. RD TO FOLLOW-UP 3-5 DAYS, MODERATE RISK JACOBO OLIVARES, RD
[2019-05-19 15:44] VITALS: BP 108/53
--- NOTE | 2019-05-19 15:47 | NUR ---
PT RESTING IN BED. NO S/S OF ACUTE DISTRESS. PT DENIES PAIN. IV SITE PATENT AND INTACT. CALL LIGHT WITHIN REACH. SAFETY MEASURES ENSURED. WILL CONTINUE TO MONITOR.
--- NOTE | 2019-05-19 19:10 | NUR ---
RECIEVED PT AAOX4 ,NID ,IV SITE INTACT AND PATENT , NO COMPLAIN MADE AT THIS TIME , PLAN OF CARE DISCUSSED AND VERBALIZE UNDERSTANDING . ON SAFETY PRECAUTION PROTOCOL - CALL LIGHT WITHIN REACH . WILL CONT. TO MONITOR.
[2019-05-19 20:00] VITALS: BP 130/75
[2019-05-20] VITALS: BP 128/70
--- NOTE | 2019-05-20 | NUR ---
MADE ROUNDS , NO COMPLAIN MADE AT THIS TIME .
[2019-05-20] MEDS: PIPERACILLIN/TAZOBACTAM 3.375 GM in DEXTROSE 5% 50 ML IV SCH ×2 (00:23→06:18)
[2019-05-20 04:00] VITALS: BP 133/75
[2019-05-20] MEDS: NACL 0.9% 1,000 ML IV SCH ×2 (05:57→07:00)
[2019-05-20 06:51] LABS: BASOPHILS # (AUTO) 0.1 K/uL (0.00-0.22); BASOPHILS % (AUTO) 0.8 % (0.0-2.0); EOSINOPHILS # (AUTO) 0.1 K/uL (0-0.4); EOSINOPHILS % (AUTO) 1.9 % (0.0-4.0); HEMATOCRIT 38.2 % (36-48); HEMOGLOBIN 12.6 g/dL (12.0-16.0); LYMPHOCYTES # (AUTO) 2.4 K/uL (2.5-16.5); LYMPHOCYTES % (AUTO) 37.6 % (20.5-51.1); MEAN CORPUSCULAR HEMOGLOBIN 29 pg (27-31); MEAN CORPUSCULAR HGB CONC 33 g/dL (33-37); MEAN CORPUSCULAR VOLUME 88.1 fL (80-94); MONOCYTES # (AUTO) 0.7 K/uL (0.8-1.0); MONOCYTES % (AUTO) 10.7 % (1.7-9.3); NEUTROPHILS # (AUTO) 3.1 K/uL (1.8-7.7); PLATELET COUNT (AUTO) 296 K/uL (140-450); RED BLOOD CELL COUNT(AUTO) 4.34 MIL/uL (4.20-5.40); RED CELL DISTRIBUTION WIDTH 13.4 % (11.6-13.7); WHITE BLOOD COUNT (AUTO) 6.4 K/uL (4.8-10.8)
--- NOTE | 2019-05-20 07:29 | NUR ---
PT RECEIVED FROM NIGHT RNTAMRA. PT SLEEPING. BREATHING EVEN AND UNLABORED AND NO SIGNS OF ACUTE DISTRESS. WILL CONTINUE CARE AND CONTINUE TO ASSESS FOR CHANGES IN CONDITION.
--- NOTE | 2019-05-20 07:29 | NUR ---
ENDORSED TO AM SHIFT WITH STABLE V/S ALTHOUGH SB ON FLAT KNITTER BUT ASYMPTOMATIC.
[2019-05-20 07:44] LABS: BILIRUBIN,DIRECT 0.4 mg/dL (0.0-0.3); TOTAL BILIRUBIN 0.6 mg/dL (0.0-1.0)
[2019-05-20 07:45] LABS: ALBUMIN 2.8 g/dL (3.4-5.0)
[2019-05-20 07:51] LABS: ANION GAP 13.4 (8-16); CARBON DIOXIDE 25.6 mmol/L (21-32); CREATININE 0.6 mg/dL (0.6-1.3)
[2019-05-20 08:00] VITALS: BP 118/67
[2019-05-20] MEDS: LACTOBACILLUS RHAMNOSUS GG 1 EACH CAP PO SCH (08:51)
[2019-05-20 08:52] LABS: MAGNESIUM 1.9 mg/dL (1.8-2.4); PHOSPHORUS 3.5 mg/dL (2.5-4.9)
--- NOTE | 2019-05-20 08:52 | NUR ---
PT RECEIVED MORNING ORDERED CULTURELLE. PT RECEIVED TEACHING ABOUT CULTURELLE, ALL QUESTIONS ANSWERED. PT UP AND AMBULATED TO RESTROOM AND BEGAN BRUSHING TEETH AT SINK. STEADY GAIT. BREATHING EVEN AND UNLABORED. WILL CONTINUE TO ASSESS FOR CHANGE IN CONDITION. NO SIGNS OF ACUTE STRESS AT THIS TIME.
[2019-05-20 09:48] VITALS: BP 118/67
--- NOTE | 2019-05-20 10:54 | NUR ---
PT UP AND AMBULATED TO RESTROOM WITH STEADY GAIT. FAMILY AT BEDSIDE. NO SIGNS OF ACUTE DISTRESS AT THIS TIME. WILL CONTINUE TO ASSESS.
[2019-05-20] MEDS ORDERED: BEN50 PO (11:05)
[2019-05-20] MEDS ORDERED: CIPR250T6 PO (11:08)
[2019-05-20] MEDS ORDERED: LACT1.4C PO (11:12)
--- NOTE | 2019-05-20 12:37 | NUR ---
PT RECEIVED DISCHARGE INSTRUCTIONS AND PACKET. ALL QUESTIONS ANSWERED. PT STABLE AT DISCHARGE. IV REMOVED, 24 G TO R HAND CATHETER INTACT. ALL BELONGINGS WENT WITH PT. PT WHEELED TO CAR. PT HAD NO QUESTIONS ABOUT DISCHARGE INSTRUCTIONS. STABLE AT DISCHARGE
== END 2019-05-20 12:40 | disposition home or self-care (01) | DRG 871 ==
LOC: MED 10:25 → MMU 13:24
PROVIDERS: ADMIT Family Medicine; ATTEND Family Medicine
PROC: BF101ZZ Fluoroscopy of Bile Ducts using Low Osmolar Contrast (ICD-10-PCS; 2019-05-19)
PROC: 0F798ZZ Dilation of Common Bile Duct, Via Natural or Artificial Opening Endoscopic (ICD-10-PCS; principal; 2019-05-19 10:30)
DX: A41.9 Sepsis, unspecified organism (principal); E43 Unspecified severe protein-calorie malnutrition; N39.0 Urinary tract infection, site not specified; E87.1 Hypo-osmolality and hyponatremia; K80.50 Calculus of bile duct without cholangitis or cholecystitis without obstruction; E87.8 Other disorders of electrolyte and fluid balance, not elsewhere classified; F41.9 Anxiety disorder, unspecified; F32.9 Major depressive disorder, single episode, unspecified; L29.8 Other pruritus; Z68.28 Body mass index [BMI] 28.0-28.9, adult; Z90.49 Acquired absence of other specified parts of digestive tract
CPT/HCPCS: 36415; 71045; 74330; 76705; 76770; 80048; 80053; 80076; 80305; 81001; 82040; 82140; 82150; 82248; 82550; 82977; 83036; 83605; 83615; 83690; 83735; 83880; 84100; 84439; 84443; 84484; 85025; 85610; 85730; 86704; 86706; 86708; 86709; 86803; 87040; 87081; 87086; 87340; 87804; 93005; 96361; 96365; 99285; G0482; J1200; J2543; J7030; J7060; Q0092; Q0163

== ENCOUNTER 2020-01-01 14:58 | Emergency (ER) | payer OTHER ==
[~2020-01-01] VITALS: Ht 160 cm; Wt 70.3 kg
[~2020-01-01 14:58] MED LIST changes: +BEN50 PO; +CIPR250T6 PO; +LACT1.4C PO
[2020-01-01] MEDS ORDERED: ASPIRIN 325 MG TAB PO ONE (15:20)
[2020-01-01] MEDS ORDERED: MORPHINE SULFATE 2 MG/ML SYR IVP ONE (15:20)
[2020-01-01] MEDS ORDERED: NITROGLYCERIN 0.4 MG TAB SL ONE (15:20)
[2020-01-01 15:26] VITALS: BP 116/51
--- NOTE | 2020-01-01 15:28 | NUR ---
54 Y/O F C/C LEFT UPPER CHEST PAIN 4/10 DULL SENSATION, NON RADIATING X 2 HOURS. ALLEVIATING FACTORS REST ; EXACERBATING ACTIVITY. PT DENIES HAVING CARDIAC PROBLEMS. DENIES DYSPNEA. PLACED FULL FOLWERS, GIVEN 2L NC FOR COMFORT. PT NKA. HX DEPRESSION, BILE DUCT. SX BILE DUCT CURRENT CATHETER IN PLACE, NO REDNESS OR COMPLICATIONS NOTED. NO RX. NO NVD. SIDE RAIL X1.
--- NOTE | 2020-01-01 15:39 | NUR ---
RAD AT BEDSIDE
[2020-01-01 16:01] LABS: BASOPHILS # (AUTO) 0.1 K/uL (0.00-0.22); BASOPHILS % (AUTO) 0.7 % (0.0-2.0); EOSINOPHILS # (AUTO) 0.2 K/uL (0-0.4); EOSINOPHILS % (AUTO) 1.6 % (0.0-4.0); HEMOGLOBIN 13.9 g/dL (12.0-16.0); MEAN CORPUSCULAR HEMOGLOBIN 29 pg (27-31); MEAN CORPUSCULAR HGB CONC 33 g/dL (33-37); MEAN CORPUSCULAR VOLUME 86.4 fL (80-94); MONOCYTES # (AUTO) 0.9 K/uL (0.8-1.0); MONOCYTES % (AUTO) 6.5 % (1.7-9.3); NEUTROPHILS % (AUTO) 70.2 % (42.2-75.2); PLATELET COUNT (AUTO) 382 K/uL (140-450); RED BLOOD CELL COUNT(AUTO) 4.87 MIL/uL (4.20-5.40); RED CELL DISTRIBUTION WIDTH 13.1 % (11.6-13.7); WHITE BLOOD COUNT (AUTO) 14.2 K/uL (4.8-10.8)
--- NOTE | 2020-01-01 16:01 | NUR ---
PT RESTING IN BED, SIDE RAIL X1
[2020-01-01 16:10] LABS: ANION GAP 15.5 (8-16); CARBON DIOXIDE 25.5 mmol/L (21-32); CREATININE 0.9 mg/dL (0.6-1.3)
[2020-01-01 16:16] LABS: ALBUMIN 3.4 g/dL (3.4-5.0); TOTAL BILIRUBIN 0.4 mg/dL (0.0-1.0)
--- NOTE | 2020-01-01 16:21 | NUR ---
PT RESTING IN BED, SIDE RAIL X1
[2020-01-01 17:18] VITALS: BP 116/44
--- NOTE | 2020-01-01 17:18 | NUR ---
Patient discharged with v/s stable. Written and verbal after care instructions given and explained. Patient verbalized understanding. Ambulatory with steady gait. All questions addressed prior to discharge. Advised to follow up with PMD. LAB, CXR, EKG RESULTS GIVEN TO PT FOR F/U WITH PMD
== END 2020-01-01 17:19 | disposition home or self-care (01) ==
LOC: MED 14:58
DX: R07.9 Chest pain, unspecified (principal); Z79.899 Other long term (current) drug therapy; Z90.49 Acquired absence of other specified parts of digestive tract
CPT/HCPCS: 36415; 71045; 80053; 83880; 84484; 85025; 93005; 99285; Q0092

== ENCOUNTER 2020-05-23 13:44 | Emergency (ER) | payer OTHER ==
[~2020-05-23] VITALS: Ht 160 cm; Wt 73.0 kg
[2020-05-23 14:00] VITALS: BP_SYST 71
--- NOTE | 2020-05-23 14:08 | NUR ---
PT AMBULATED TO BED 2.
--- NOTE | 2020-05-23 14:10 | NUR ---
Pt ambulated to restroom for collection of urine
--- NOTE | 2020-05-23 14:15 | NUR ---
54 y/o female from home c/o hematuria x 1 day and lower abd pain radiating to left flank x 2 days. Pt states 6/10 constant sharp pain in abd. Denies dysuria. Pt afebrile upon arrival, Abd soft, round, slightly tender to palp. Denies trauma/injury to lower back. Denies N/V/D. Positioned for comfort. VSS medhx: gallbladder removal
[2020-05-23] MEDS ORDERED: ONDANSETRON 4 MG ODT PO ONE (14:25)
[2020-05-23] MEDS ORDERED: HYDROcodone/APAP 5/325 MG 1 TAB TAB PO ONE (14:25)
[2020-05-23] MEDS ORDERED: KETOROLAC 30 MG/ML VIAL IM ONE (14:25)
--- NOTE | 2020-05-23 14:32 | NUR ---
Lab at bedside for blood draw
--- NOTE | 2020-05-23 14:42 | NUR ---
Pt refused Mcgregor at this time, states "the shot will be enough for now."
[2020-05-23 14:55] LABS: APPEARANCE,URINE CLOUDY (CLEAR); BILIRUBIN,URINE NEGATIVE (NEGATIVE); BLOOD, URINE 3+ (NEGATIVE); COLOR,URINE YELLOW (YELLOW); LEUKOCYTE ESTERASE ,URINE NEGATIVE (NEGATIVE); NITRITE, URINE NEGATIVE (NEGATIVE); UGLUCOSE NEGATIVE (NEGATIVE)
[2020-05-23 14:55] LABS: BASOPHILS # (AUTO) 0.1 K/uL (0.00-0.22); BASOPHILS % (AUTO) 0.5 % (0.0-2.0); EOSINOPHILS # (AUTO) 0.1 K/uL (0-0.4); HEMATOCRIT 41.2 % (36-48); LYMPHOCYTES # (AUTO) 2.3 K/uL (2.5-16.5); LYMPHOCYTES % (AUTO) 24.7 % (20.5-51.1); MEAN CORPUSCULAR HEMOGLOBIN 29 pg (27-31); MEAN CORPUSCULAR HGB CONC 34 g/dL (33-37); MEAN CORPUSCULAR VOLUME 86.4 fL (80-94); MONOCYTES # (AUTO) 0.6 K/uL (0.8-1.0); MONOCYTES % (AUTO) 6.5 % (1.7-9.3); NEUTROPHILS # (AUTO) 6.4 K/uL (1.8-7.7); NEUTROPHILS % (AUTO) 67.3 % (42.2-75.2); PLATELET COUNT (AUTO) 292 K/uL (140-450); RED BLOOD CELL COUNT(AUTO) 4.77 MIL/uL (4.20-5.40); RED CELL DISTRIBUTION WIDTH 13.7 % (11.6-13.7); WHITE BLOOD COUNT (AUTO) 9.5 K/uL (4.8-10.8)
--- NOTE | 2020-05-23 15:00 | NUR ---
Pt to CT via violeta
[2020-05-23 15:09] LABS: ANION GAP 15.2 (8-16); CARBON DIOXIDE 24.5 mmol/L (21-32); CREATININE 0.7 mg/dL (0.6-1.3); POTASSIUM 3.7 mmol/L (3.5-5.1); TOTAL BILIRUBIN 0.4 mg/dL (0.0-1.0)
--- NOTE | 2020-05-23 15:18 | NUR ---
Pt returned from CT via [facility]
[2020-05-23 15:37] LABS: RBC,URINE >100 /HPF (0-5); WBC,URINE 0-5 /HPF (0-5)
--- NOTE | 2020-05-23 16:07 | NUR ---
Pt denies pain at this time. Positioned for comfort. VSS. Will continue to monitor
[2020-05-23 16:14] VITALS: BP 127/71
--- NOTE | 2020-05-23 16:15 | NUR ---
Patient discharged with v/s stable. Written and verbal after care instructions given and explained. Patient alert, oriented and verbalized understanding of instructions. Ambulatory with steady gait. All questions addressed prior to discharge. ID band removed. Patient advised to follow up with PMD. Rx of Castine 5mg-325mg, Ibuprofen 600mg, and Flomax 0.4mg given. Patient educated on indication of medication including possible reaction and side effects. Opportunity to ask questions provided and answered.
== END 2020-05-23 16:15 | disposition home or self-care (01) ==
LOC: MED 13:44
DX: R10.9 Unspecified abdominal pain (principal); R31.9 Hematuria, unspecified; N20.0 Calculus of kidney; Z90.49 Acquired absence of other specified parts of digestive tract; Z79.899 Other long term (current) drug therapy
CPT/HCPCS: 36415; 74176; 80053; 81001; 85025; 87086; 96372; 99284; J1885; Q0162

== ENCOUNTER 2020-12-29 18:41 | Emergency (ER) | payer OTHER ==
[~2020-12-29] VITALS: Ht 160 cm; Wt 73.5 kg
[2020-12-29 18:55] VITALS: BP 96/44
--- NOTE | 2020-12-29 19:00 | NUR ---
Patient ambulated with steady gait to bed 6.
--- NOTE | 2020-12-29 19:10 | NUR ---
PT. IS 55 Y/O THAT CAME TO ED WITH C/O OF RIGHT LOWER ABDOMINAL PAIN. PT. STATES THAT SHE BELIEVES SHE STILL HAS KIDNEY STONES. PT. ALSO STATES THAT WHEN SHE VOIDS, IT ORTIZ AND IS PAINFUL. SHE RATED HER PAIN 7/10. SKIN IS PINK/WARM/DRY; AAOX4 WITH EVEN AND STEADY GAIT; HR EVEN AND REGULAR; PT DENIES ANY FEVER, CP, SOB, OR COUGH AT THIS TIME; VSS; PATIENT POSITIONED FOR COMFORT; HOB ELEVATED; BEDRAILS UP X2; BED DOWN. ER MD MADE AWARE OF PT STATUS. PMH: KIDNEY STONES ALLERGIES: NKA
--- NOTE | 2020-12-29 19:15 | NUR ---
Dr. Vogt examining patient.
--- NOTE | 2020-12-29 19:40 | NUR ---
SL ESTABLISHED, LABS DRAWN
[2020-12-29 19:53] LABS: BASOPHILS # (AUTO) 0.1 K/uL (0.00-0.22); BASOPHILS % (AUTO) 0.7 % (0.0-2.0); EOSINOPHILS # (AUTO) 0.1 K/uL (0-0.4); EOSINOPHILS % (AUTO) 0.5 % (0.0-4.0); HEMATOCRIT 40.8 % (36-48); HEMOGLOBIN 13.8 g/dL (12.0-16.0); LYMPHOCYTES # (AUTO) 2.5 K/uL (2.5-16.5); LYMPHOCYTES % (AUTO) 21.6 % (20.5-51.1); MEAN CORPUSCULAR HEMOGLOBIN 30 pg (27-31); MEAN CORPUSCULAR HGB CONC 34 g/dL (33-37); MEAN CORPUSCULAR VOLUME 88.2 fL (80-94); MONOCYTES # (AUTO) 0.8 K/uL (0.8-1.0); MONOCYTES % (AUTO) 6.7 % (1.7-9.3); NEUTROPHILS # (AUTO) 8.1 K/uL (1.8-7.7); NEUTROPHILS % (AUTO) 70.5 % (42.2-75.2); PLATELET COUNT (AUTO) 288 K/uL (140-450); RED BLOOD CELL COUNT(AUTO) 4.63 MIL/uL (4.20-5.40); RED CELL DISTRIBUTION WIDTH 13.4 % (11.6-13.7); WHITE BLOOD COUNT (AUTO) 11.4 K/uL (4.8-10.8)
[2020-12-29] MEDS: KETOROLAC 30 MG/ML VIAL IVP ONE (19:55)
[2020-12-29] MEDS: NACL 0.9% 1,000 ML IV SCH (19:56)
[2020-12-29 20:09] LABS: ALBUMIN 3.7 g/dL (3.4-5.0); ANION GAP 14.2 (8-16); CARBON DIOXIDE 25.7 mmol/L (21-32); CREATININE 0.8 mg/dL (0.6-1.3); POTASSIUM 3.9 mmol/L (3.5-5.1); TOTAL BILIRUBIN 0.5 mg/dL (0.0-1.0)
--- NOTE | 2020-12-29 20:11 | NUR ---
RETURNED FROM CT
--- NOTE | 2020-12-29 20:11 | NUR ---
Duarte tamayo in [facility] - 12/29/20 at 2011 by DARA PT RETURN FROM CT
[2020-12-29 20:45] LABS: APPEARANCE,URINE CLEAR (CLEAR); BILIRUBIN,URINE NEGATIVE (NEGATIVE); BLOOD, URINE TRACE-I (NEGATIVE); COLOR,URINE YELLOW (YELLOW); LEUKOCYTE ESTERASE ,URINE TRACE (NEGATIVE); NITRITE, URINE NEGATIVE (NEGATIVE); PH,URINE 7.5 (5.0-9.0); UGLUCOSE NEGATIVE (NEGATIVE)
[2020-12-29] MEDS ORDERED: ACET-8386 PO (21:26)
[2020-12-29] MEDS ORDERED: IBUP-2213 PO (21:26)
[2020-12-29] MEDS ORDERED: CIPR500T4 PO (21:26)
[2020-12-29] MEDS ORDERED: TAMS0.4C96 PO (21:26)
[2020-12-29 21:36] VITALS: BP 96/44
--- NOTE | 2020-12-29 21:36 | NUR ---
Patient discharged with v/s stable. Written and verbal after care instructions given and explained. Patient alert, oriented and verbalized understanding of instructions. Ambulatory with steady gait. All questions addressed prior to discharge. ID band removed. Patient advised to follow up with PMD. Rx of HYDROCODONE/ACETAMINOPHEN, CIPRO, IBUPROFEN, AND FLOMAX given. Patient educated on indication of medication including possible reaction and side effects. Opportunity to ask questions provided and answered.
--- NOTE | 2020-12-31 19:41 | NUR ---
LATE ENTRY-- 0.9% NS BOLUS DISCONTINUED AT 2100
== END 2020-12-29 21:36 | disposition home or self-care (01) ==
LOC: MED 18:41
DX: N20.0 Calculus of kidney (principal); N39.0 Urinary tract infection, site not specified; Z79.899 Other long term (current) drug therapy; Z90.49 Acquired absence of other specified parts of digestive tract
CPT/HCPCS: 36415; 74176; 80053; 81001; 83690; 85025; 87086; 96361; 96374; 99284; J1885; J7030

== ENCOUNTER 2023-02-25 18:07 | Emergency (ER) | payer OTHER ==
[~2023-02-25] VITALS: Ht 160 cm; Wt 90.7 kg
[~2023-02-25 18:07] MED LIST changes: +ACET-8905 PO; +CIPR500T4 PO; +IBUP-2213 PO; +TAMS0.4C96 PO
[2023-02-25 18:16] VITALS: BP 137/99; PULSE 76; RESP 20; TEMP 97.6; O2SAT 97
[2023-02-25] MEDS ORDERED: NACL 0.9% 1,000 ML IV ONE (19:10)
[2023-02-25] MEDS ORDERED: MORPHINE SULFATE 4 MG/ML SYR IVP ONE (19:10)
[2023-02-25] MEDS ORDERED: ONDANSETRON 4 MG/2 ML VIAL IVP ONE ×2 (19:10→22:00)
--- NOTE | 2023-02-25 19:37 | NUR ---
EXAM BY DR MORALES, PT SITTING UP IN BED, REPORTS 10/10 PAIN
--- NOTE | 2023-02-25 19:38 | NUR ---
SBAR TO LACI SIGALA
[2023-02-25 20:05] LABS: HEMOGLOBIN 13.6 g/dL (12.0-16.0); MEAN CORPUSCULAR HEMOGLOBIN 29 pg (27-31); MEAN CORPUSCULAR HGB CONC 33 g/dL (33-37); PLATELET COUNT (AUTO) 377 K/uL (140-450); RED BLOOD CELL COUNT(AUTO) 4.71 MIL/uL (4.20-5.40); RED CELL DISTRIBUTION WIDTH 13.4 % (11.6-13.7); WHITE BLOOD COUNT (AUTO) 20.9 K/uL (4.8-10.8)
[2023-02-25 20:21] LABS: ALBUMIN 3.8 g/dL (3.4-5.0); ANION GAP 14.5 (8-16); CARBON DIOXIDE 24.4 mmol/L (21-32); CREATININE 0.9 mg/dL (0.6-1.3); LYMPHOCYTES % (MANUAL) 15 % (20-46); MONOCYTES % (MANUAL) 6 % (5-12); POTASSIUM 3.9 mmol/L (3.5-5.1); TOTAL BILIRUBIN 0.4 mg/dL (0.0-1.0)
--- NOTE | 2023-02-25 20:43 | NUR ---
Pt ambulated to restroom for urine
[2023-02-25 21:00] LABS: APPEARANCE,URINE CLEAR (CLEAR); BILIRUBIN,URINE NEGATIVE (NEGATIVE); BLOOD, URINE TRACE-I (NEGATIVE); COLOR,URINE YELLOW (YELLOW); LEUKOCYTE ESTERASE ,URINE TRACE (NEGATIVE); NITRITE, URINE NEGATIVE (NEGATIVE); UGLUCOSE TRACE (NEGATIVE)
[2023-02-25 21:20] LABS: RBC,URINE 0-5 /HPF (0-5); YEAST,URINE None Seen /HPF (None Seen)
[2023-02-25] MEDS ORDERED: KETOROLAC 15 MG/ML VIAL IVP ONE (22:00)
[2023-02-25] MEDS ORDERED: ONDA-188 PO (22:16)
[2023-02-25] MEDS ORDERED: ACET-5629 PO (22:16)
[2023-02-25] MEDS ORDERED: IBUP-2213 PO (22:16)
--- NOTE | 2023-02-25 22:50 | NUR ---
pt resting on bed. A/ox4. not in distress. on monitor. pt reported of relief of pain to 3/10 abd pain. denies nausea and vomiting.
[2023-02-25] MEDS ORDERED: KETOROLAC 15 MG/ML VIAL ONE (23:05)
[2023-02-25] MEDS ORDERED: ONDANSETRON 4 MG/2 ML VIAL ONE (23:06)
--- NOTE | 2023-02-25 23:13 | NUR ---
PT VOMITING AT THIS TIME. JUST GAVE ZOFRAN PER DR ORDERS. WILL MAKE ER MD MORALES AWARE.
[2023-02-25 23:45] VITALS: BP 143/74; PULSE 75; RESP 24; TEMP 97.6; O2SAT 98
--- NOTE | 2023-02-25 23:45 | NUR ---
Patient discharged with v/s stable. Written and verbal after care instructions given and explained. Patient verbalized understanding. Ambulatory with steady gait. Accompanied by home. No c/o nausea or vomiting at this this time. All questions addressed prior to discharge. Advised to follow up with PMD.
== END 2023-02-25 23:45 | disposition home or self-care (01) ==
LOC: MED 18:07
DX: N20.0 Calculus of kidney (principal); D72.829 Elevated white blood cell count, unspecified; R11.2 Nausea with vomiting, unspecified; N23 Unspecified renal colic; Z79.899 Other long term (current) drug therapy
CPT/HCPCS: 36415; 74176; 80053; 81001; 83690; 85025; 96361; 96374; 96375; 96376; 99285; J1885; J2270; J2405; J7030